=== PATIENT | female | born 1950 | race Caucasian/White ===

== ENCOUNTER → 2016-12-17 | Outpatient (CLI) | payer OTHER, MEDICAID ==
--- NOTE | 2016-12-20 08:45 | RAD ---
HISTORY: Rotator cuff sprain Study: 3 views of the left shoulder. Comparison: None Findings: No acute fractures or dislocations. The glenohumeral articulation is normal in its appearance. No g ross soft tissue abnormalities. The acromioclavicular joint is normal in appearance. IMPRESSION: 1. No acute abnormality of the left shoulder. Reported By:
== END | disposition home or self-care (01) ==
LOC: RAD 10:40
PROVIDERS: ATTEND Obstetrics & Gynecology Obstetrics
DX: S43.422A Sprain of left rotator cuff capsule, initial encounter (principal); X58.XXXA Exposure to other specified factors, initial encounter
CPT/HCPCS: 73030

== ENCOUNTER 2023-07-02 10:56 | Inpatient (IN) ==
--- NOTE | 2023-07-02 11:12 | DR.GENAD ---
HPI Time Seen Time Seen by Provider: 07/02/23 11:11 PMH PMH Past Medical History: Coronary Artery Disease and Hypertension Past Surgical History: Yes Surgical History: Hysterectomy Social History Do you use any recreational Drugs:: No PE Vital Signs Vitals: Vital Signs Temperature 99.4 F Temperature 102.1 F Pulse Rate 106 Pulse Rate 111 Pulse Rate 117 Pulse Rate 115 Pulse Rate 124 Pulse Rate 109 Pulse Rate 109 Pulse Rate 114 Pulse Rate 109 Pulse Rate 98 Respiratory Rate 29 Respiratory Rate 28 Respiratory Rate 30 Respiratory Rate 20 Respiratory Rate 26 Respiratory Rate 30 Respiratory Rate 30 Respiratory Rate 32 Respiratory Rate 21 Respiratory Rate 35 Respiratory Rate 37 Respiratory Rate 21 Blood Pressure 125/60 Blood Pressure 136/62 Blood Pressure 137/84 Blood Pressure 138/68 Blood Pressure 151/70 Blood Pressure 141/72 O2 Sat by Pulse Oximetry 93 O2 Sat by Pulse Oximetry 93 O2 Sat by Pulse Oximetry 93 O2 Sat by Pulse Oximetry 93 O2 Sat by Pulse Oximetry 94 O2 Sat by Pulse Oximetry 92 O2 Sat by Pulse Oximetry 94 O2 Sat by Pulse Oximetry 94 O2 Sat by Pulse Oximetry 96 O2 Sat by Pulse Oximetry 100 ROR Labs Reviewed 07/02/23 11:49 07/02/23 11:49 Laboratory: WBC 22.9 X10^3/uL (3.6-10.0) H 07/02/23 11:49 RBC 3.81 X10^6/uL (3.5-5.4) 07/02/23 11:49 Hgb 11.6 g/dL (12.0-16.0) L 07/02/23 11:49 Hct 35.4 % (36.0-47.0) L 07/02/23 11:49 MCV 92.9 fL (80.0-100.0) 07/02/23 11:49 MCH 30.4 pg (27.0-34.0) 07/02/23 11:49 MCHC 32.7 g/dL (33.0-35.0) L 07/02/23 11:49 RDW 13.3 % (11.6-16.5) 07/02/23 11:49 Plt Count 312 X10^3/uL (150.0-450.0) 07/02/23 11:49 Plt Count Comment Adequate (ADEQUATE) 07/02/23 11:49 MPV 7.2 fL (7.4-11.0) L 07/02/23 11:49 Neut % (Auto) 82.6 % (42.0-75.0) H 07/02/23 11:49 Lymph % (Auto) 9.3 % (21.0-51.0) L 07/02/23 11:49 [place] % (Auto) 7.4 % (0.0-13.0) 07/02/23 11:49 Eos % (Auto) 0.1 % (0.9-2.9) L 07/02/23 11:49 Baso % (Auto) 0.6 % (0.2-1.0) 07/02/23 11:49 Neut # (Auto) 18.9 x10^3/uL (2.2-4.8) H 07/02/23 11:49 Lymph # (Auto) 2.1 X10^3/uL (1.3-2.9) 07/02/23 11:49 [place] # (Auto) 1.7 x10^3/uL (0.3-0.8) H 07/02/23 11:49 Eos # (Auto) 0.0 x10^3/uL (0.0-0.2) 07/02/23 11:49 Baso # (Auto) 0.1 X10^3/uL (0.0-0.1) 07/02/23 11:49 Absolute Nucleated RBC 0.0 /100WBC 07/02/23 11:49 Total Counted 100 07/02/23 11:49 Neutrophils % (Manual) 82 % (39-76) H 07/02/23 11:49 Band Neutrophils % 7 % (0-10) 07/02/23 11:49 Lymphocytes % (Manual) 7 % (13-43) L 07/02/23 11:49 Monocytes % (Manual) 4 % (4-9) 07/02/23 11:49 Eosinophils % (Manual) 0 % (0-6) 07/02/23 11:49 Basophils % (Manual) 0 % (0-1) 07/02/23 11:49 Toxic Granulation Slight A 07/02/23 11:49 Plt Morphology Comment Normal (NORMAL) 07/02/23 11:49 RBC Morphology Normal (NORMAL) 07/02/23 11:49 Sodium 135 mmol/L (136-145) L 07/02/23 11:49 Corrected Sodium 136 mmol/L (136-145) 07/02/23 11:49 Potassium 3.5 mmol/L (3.5-5.1) 07/02/23 11:49 Chloride 101 mmol/L (98-107) 07/02/23 11:49 Carbon Dioxide 27.2 mmol/L (21-32) 07/02/23 11:49 BUN 9 mg/dL (7-18) 07/02/23 11:49 Creatinine 1.04 mg/dL (0.55-1.02) H 07/02/23 11:49 Est GFR (MDRD) Af Amer > 60 (>60) 07/02/23 11:49 Est GFR (MDRD) Non-Af 56 (>60) L 07/02/23 11:49 Glucose 133 mg/dL (65-99) H 07/02/23 11:49 Lactic Acid 2.4 mmol/L (0.4-2.0) H 07/02/23 11:49 Calcium 8.0 mg/dL (8.5-10.1) L 07/02/23 11:49 Corrected Calcium 8.7 mg/dL (8.5-10.1) 07/02/23 11:49 Total Bilirubin 1.20 mg/dL (0.2-1.0) H 07/02/23 11:49 AST 19 Units/L (15-37) 07/02/23 11:49 ALT 15 Units/L (12-78) 07/02/23 11:49 Alkaline Phosphatase 55 Units/L (46-116) 07/02/23 11:49 Creatine Kinase 46 Units/L (26-192) 07/02/23 11:49 Troponin I High Sens 5.2 ng/L (4.0-60.0) 07/02/23 11:49 Total Protein 7.0 g/dL (6.4-8.2) 07/02/23 11:49 Albumin 3.1 g/dL (3.4-5.0) L 07/02/23 11:49 Globulin 3.9 g/dL (2.5-4.5) 07/02/23 11:49 Albumin/Globulin Ratio 0.8 Ratio (1.1-2.1) L 07/02/23 11:49 Specimen Type Clean catch urine 07/02/23 12:44 Urine Color Yellow (YELLOW) 07/02/23 12:44 Urine Appearance Clear (CLEAR) 07/02/23 12:44 Urine pH 7.0 (5.0 - 8.0) 07/02/23 12:44 Ur Specific [place] 1.015 (1.000-1.030) 07/02/23 12:44 Urine Protein 2+ (NEGATIVE) 07/02/23 12:44 Urine Glucose (UA) Negative (NEGATIVE) 07/02/23 12:44 Urine Ketones Negative (NEGATIVE) 07/02/23 12:44 Urine Blood 3+ (NEGATIVE) 07/02/23 12:44 Urine Nitrite Negative (NEGATIVE) 07/02/23 12:44 Urine Bilirubin Negative (NEGATIVE) 07/02/23 12:44 Urine Urobilinogen 2+ (NORMAL) 07/02/23 12:44 Ur Leukocyte Esterase Negative (NEGATIVE) 07/02/23 12:44 Urine RBC 3-5 /HPF (0-3) A 07/02/23 12:44 Urine WBC 0-2 /HPF (0-5) 07/02/23 12:44 Ur Squamous Epith Cells Moderate /HPF (NEGATIVE) 07/02/23 12:44 Urine Bacteria 2+ /HPF (NEGATIVE) 07/02/23 12:44 Urine Mucus Rare /HPF (NEGATIVE) 07/02/23 12:44 Ur Culture Indicated? Yes/culture set up 07/02/23 12:44 Opioid Opioid Risk Tool Age (Darrian box if 16-45): No History of Preadolescent Sexual Abuse: No Total: 0 Total Score Risk Category: Low Risk Copyright: Larry ALVAREZ predicting aberrant behaviors Discharge Plan Discharge Plan Patient Disposition: 01 HOME, SELF-CARE Condition: Stable Prescriptions: No Action citalopram 10 mg tablet 1 tab PO QDAY lisinopril 20 mg tablet 1 tab PO QDAY digoxin 125 mcg (0.125 mg) tablet 1 tab PO QDAY estradiol 0.5 mg tablet 1 tab PO QDAY Eliquis 2.5 mg tablet 1 tab PO BID hydrocodone-acetaminophen 5-325 mg tablet 1 tab PO Q8H MDD 3 TAB PRN (Reason: pain) Qty: 15 0RF tizanidine [Zanaflex] 4 mg tablet 4 mg PO Q8H PRN (Reason: muscle spasticity) Qty: 12 0RF Health Concerns: Post Hospitalization: new medications and changes needed to prevent readmission or further decline. Pt educated and given instructions on all concerns. Plan of Treatment: Continue with present treatment and follow up plan. Pt is to keep follow up appointment as instructed and take medications as ordered. Orders to Discharge Patient Discharge Orders: Transfer (Routine); Ordered 07/02/23 Ordered By: NEVIN GIRARD Follow ups/Referrals Follow ups/Referrals: KVNG LANIER [Primary Care Provider] - 3 days Instructions Stand Alone Forms: Post Hospital Follow Up Care
[2023-07-02 11:26] VITALS: BMI 32.3
[2023-07-02] MEDS ORDERED: TYLENOL 325 MG TAB PO ONE ×2 (11:28→11:30)
[2023-07-02] MEDS ORDERED: NS 1,000 ML IV 1,000 ML ONE (11:35)
[2023-07-02] MEDS: NS 1,000 ML IV 1,000 ML IV SCH (11:41)
--- NOTE | 2023-07-02 12:02 | RAD ---
EXAM:CHEST, 1 VIEWHISTORY:COUGH AND LETHARGY; PT IS HAVING GENERALIZED WEAKNESS AND A PRODUCTIVE COUGH PRODUCING GREEN SPUTUM, FEVER X 1 WEEKCOMPARISON:NoneFINDINGS:The cardiomediastinal silhouette is normal in size.Bibasilar airspace opacities. No pneumothorax or effusion.No acute osseous abnormality.IMPRESSION:Bibasilar opacities concerning for atelectasis or pneumonia. Continued follow-up recommended.THIS IS AN ELECTRONICALLY VERIFIED FINAL [id number]/02/2023 11:54 AM - Electronically signed by Villa White MD
[2023-07-02 12:13] LABS: BASOPHILS # (AUTO) 0.1 X10^3/uL (0.0-0.1); BASOPHILS % (AUTO) 0.6 % (0.2-1.0); EOSINOPHILS % (AUTO) 0.1 % (0.9-2.9); HEMATOCRIT 35.4 % (36.0-47.0); HEMOGLOBIN 11.6 g/dL (12.0-16.0); LYMPHOCYTES # (AUTO) 2.1 X10^3/uL (1.3-2.9); LYMPHOCYTES % (AUTO) 9.3 % (21.0-51.0); MEAN CORPUSCULAR HEMOGLOBIN 30.4 pg (27.0-34.0); MEAN CORPUSCULAR HGB CONC 32.7 g/dL (33.0-35.0); MEAN CORPUSCULAR VOLUME 92.9 fL (80.0-100.0); MEAN PLATELET VOLUME 7.2 fL (7.4-11.0); MONOCYTES # (AUTO) 1.7 x10^3/uL (0.3-0.8); MONOCYTES % (AUTO) 7.4 % (0.0-13.0); NEUTROPHILS # (AUTO) 18.9 x10^3/uL (2.2-4.8); NEUTROPHILS % (AUTO) 82.6 % (42.0-75.0); PLATELET COUNT 312 X10^3/uL (150.0-450.0); RED BLOOD COUNT 3.81 X10^6/uL (3.5-5.4); RED CELL DISTRIBUTION WIDTH 13.3 % (11.6-16.5); WHITE BLOOD COUNT 22.9 X10^3/uL (3.6-10.0)
--- NOTE | 2023-07-02 12:13 | EKG ---
Test Reason : LETHARGY Blood Pressure : */* mmHG Vent. Rate : 115 BPM Atrial Rate : 115 BPM P-R Int : 170 ms QRS Dur : 88 ms QT Int : 326 ms P-R-T Axes : 51 -54 61 degrees QTc Int : 450 ms Sinus tachycardia Left anterior fascicular block Minimal voltage criteria for LVH, may be normal variant ( [place] product ) Cannot rule out Anterior infarct , age undetermined Abnormal ECG No previous ECGs available Confirmed by Rajesh Ceo ([id number]) on 07/04/2023 10:02:05 AM Referred By: Confirmed By: Rajesh Coe
[2023-07-02 12:25] LABS: ALANINE AMINOTRANSFERASE 15 Units/L (12-78); ALBUMIN 3.1 g/dL (3.4-5.0); ALKALINE PHOSPHATASE 55 Units/L (46-116); ASPARTATE AMINO TRANSFERASE 19 Units/L (15-37); BLOOD UREA NITROGEN 9 mg/dL (7-18); CARBON DIOXIDE 27.2 mmol/L (21-32); CHLORIDE 101 mmol/L (98-107); COR CA(FOR HYPOALB) 8.7 mg/dL (8.5-10.1); COR NA(FOR HYPERGLY) 136 mmol/L (136-145); CREATINE KINASE 46 Units/L (26-192); CREATININE 1.04 mg/dL (0.55-1.02); GLUCOSE 133 mg/dL (65-99); POTASSIUM 3.5 mmol/L (3.5-5.1); SODIUM 135 mmol/L (136-145); eGFR NON BLACK RACES 56 (>60)
[2023-07-02 13:00] LABS: BAND NEUTROPHILS % 7 % (0-10); BASOPHILS % (MANUAL) 0 % (0-1); PLATELET MORPHOLOGY COMMENT NORMAL (NORMAL); TOXIC GRANULATION SLIGHT
[2023-07-02 13:15] LABS: BILIRUBIN,URINE NEGATIVE (NEGATIVE); BLOOD/HEMOGLOBIN,URINE 3+ (NEGATIVE); GLUCOSE, URINE NEGATIVE (NEGATIVE); KETONES,URINE NEGATIVE (NEGATIVE); LEUKOCYTE ESTERASE ,URINE NEGATIVE (NEGATIVE); NITRITES,URINE NEGATIVE (NEGATIVE); PROTEIN,URINE 2+ (NEGATIVE); UROBILINOGEN,URINE 2+ (NORMAL)
[2023-07-02 13:26] LABS: APPEARANCE,URINE CLEAR (CLEAR); BACTERIA,URINE 2+ /HPF (NEGATIVE); COLOR,URINE YELLOW (YELLOW); SQUAMOUS EPITHELIAL CELL,UR MODERATE /HPF (NEGATIVE)
[2023-07-02] MEDS: ROCEPHIN VIAL 1 GRAM IV SCH (14:54)
[2023-07-02] MEDS ORDERED: ROCEPHIN VIAL 1 GRAM ONE (14:55)
[2023-07-02] MEDS ORDERED: DUONEB 0.5 MG/3 MG (3 mL) NEB ONE (17:02)
[2023-07-02] MEDS: DUONEB 0.5 MG/3 MG (3 mL) NEB SCH ×2 (17:05→21:07)
[2023-07-02] MEDS: ZITHROMAX INJ 500 MG VIAL 500 MG in NS 250 ML IV 250 ML IV SCH (17:12)
[2023-07-02] MEDS ORDERED: CONSULT PHARMACY - POTASSIUM & MAGNESIUM XX SCH (20:00)
[2023-07-02] MEDS ORDERED: K-DUR TAB 20 MEQ PO ONE (21:00)
[2023-07-02] MEDS: PULMICORT NEB TX 0.5 MG NEB SCH (21:07)
[2023-07-02] MEDS: TYLENOL 325 MG TAB PO PRN (21:15)
--- NOTE | 2023-07-02 21:29 | EKG ---
Test Reason : irregular heart rate rhythm Blood Pressure : */* mmHG Vent. Rate : 151 BPM Atrial Rate : * BPM P-R Int : * ms QRS Dur : 84 ms QT Int : 298 ms P-R-T Axes : * -53 109 degrees QTc Int : 472 ms Atrial fibrillation with rapid ventricular response Left anterior fascicular block Anterior infarct (cited on or before 02-JUL-2023) Marked ST abnormality, possible inferior subendocardial injury Abnormal ECG When compared with ECG of 02-JUL-2023 12:08, (Unconfirmed) Atrial fibrillation has replaced Sinus rhythm Serial changes of evolving Anterior infarct present Confirmed by Rajesh Coe ([id number]) on 07/04/2023 10:01:29 AM Referred By: Confirmed By: Rajesh Coe
[2023-07-02] MEDS: MAG-OX TAB PO SCH ×2 (21:34→23:02)
[2023-07-02] MEDS: ELIQUIS PO SCH (21:34)
[2023-07-02] MEDS ORDERED: LANOXIN INJ IVP ONE (21:55)
[2023-07-02] MEDS: LOPRESSOR INJ 5 MG AMP IVP ONE ×2 (22:47→23:02)
[2023-07-02] MEDS ORDERED: LOPRESSOR INJ 5 MG AMP IVP ONE (22:55)
[2023-07-03] MEDS: DUONEB 0.5 MG/3 MG (3 mL) NEB SCH ×2 (00:30→05:34)
[2023-07-03 05:21] LABS: BASOPHILS % (AUTO) 0.2 % (0.2-1.0); HEMATOCRIT 33.1 % (36.0-47.0); HEMOGLOBIN 10.9 g/dL (12.0-16.0); LYMPHOCYTES # (AUTO) 1.7 X10^3/uL (1.3-2.9); LYMPHOCYTES % (AUTO) 8.6 % (21.0-51.0); MEAN CORPUSCULAR HEMOGLOBIN 30.7 pg (27.0-34.0); MEAN PLATELET VOLUME 7.5 fL (7.4-11.0); MONOCYTES # (AUTO) 1.4 x10^3/uL (0.3-0.8); MONOCYTES % (AUTO) 7.2 % (0.0-13.0); NEUTROPHILS # (AUTO) 16.4 x10^3/uL (2.2-4.8); PLATELET COUNT 276 X10^3/uL (150.0-450.0); RED BLOOD COUNT 3.55 X10^6/uL (3.5-5.4); RED CELL DISTRIBUTION WIDTH 13.3 % (11.6-16.5); WHITE BLOOD COUNT 19.6 X10^3/uL (3.6-10.0)
[2023-07-03 05:38] LABS: ALANINE AMINOTRANSFERASE 13 Units/L (12-78); ALBUMIN 2.5 g/dL (3.4-5.0); ALKALINE PHOSPHATASE 50 Units/L (46-116); ASPARTATE AMINO TRANSFERASE 13 Units/L (15-37); BLOOD UREA NITROGEN 13 mg/dL (7-18); CALCIUM 7.7 mg/dL (8.5-10.1); CARBON DIOXIDE 29.5 mmol/L (21-32); CHLORIDE 104 mmol/L (98-107); COR CA(FOR HYPOALB) 8.9 mg/dL (8.5-10.1); CREATININE 0.93 mg/dL (0.55-1.02); GLUCOSE 104 mg/dL (65-99); POTASSIUM 4.1 mmol/L (3.5-5.1); SODIUM 138 mmol/L (136-145); TOTAL PROTEIN 6.1 g/dL (6.4-8.2); eGFR NON BLACK RACES > 60 (>60)
[2023-07-03] MEDS: XOPENEX 1.25 MG/3 ML NEBULE NEB SCH ×4 (05:45→20:40)
[2023-07-03] MEDS: LANOXIN or DIGITEK PO SCH (08:15)
[2023-07-03] MEDS: PULMICORT NEB TX 0.5 MG NEB SCH ×2 (08:42→20:40)
[2023-07-03] MEDS: ZESTRIL TAB 10 MG PO SCH (08:55)
[2023-07-03] MEDS: ELIQUIS PO SCH ×2 (08:55→21:08)
[2023-07-03] MEDS: TYLENOL 325 MG TAB PO PRN ×2 (08:57→21:07)
[2023-07-03] MEDS: ROCEPHIN VIAL 1 GRAM IV SCH (08:58)
[2023-07-03] MEDS: ZITHROMAX INJ 500 MG VIAL 500 MG in NS 250 ML IV 250 ML IV SCH (08:59)
[2023-07-03] MEDS ORDERED: TOPROL XL PO SCH (09:00)
[2023-07-03] MEDS: NS 1,000 ML IV 1,000 ML IV SCH (11:00)
[2023-07-03] MEDS ORDERED: TUSSIONEX PENNKINETIC SUSP PO PRN (18:35)
[2023-07-03] MEDS ORDERED: CONSULT PHARMACY - POTASSIUM & MAGNESIUM XX SCH (20:00)
[2023-07-03] MEDS: MAG-OX TAB PO SCH ×2 (21:08→22:03)
[2023-07-04] MEDS: XOPENEX 1.25 MG/3 ML NEBULE NEB SCH (05:23)
[2023-07-04 05:40] LABS: ALANINE AMINOTRANSFERASE 14 Units/L (12-78); ALBUMIN 2.3 g/dL (3.4-5.0); ALKALINE PHOSPHATASE 46 Units/L (46-116); ASPARTATE AMINO TRANSFERASE 17 Units/L (15-37); BLOOD UREA NITROGEN 11 mg/dL (7-18); CALCIUM 7.7 mg/dL (8.5-10.1); CARBON DIOXIDE 27.4 mmol/L (21-32); CHLORIDE 106 mmol/L (98-107); COR CA(FOR HYPOALB) 9.1 mg/dL (8.5-10.1); CREATININE 0.84 mg/dL (0.55-1.02); GLUCOSE 86 mg/dL (65-99); MAGNESIUM 2.1 mg/dL (2.0-2.9); POTASSIUM 4.2 mmol/L (3.5-5.1); SODIUM 138 mmol/L (136-145); TOTAL PROTEIN 5.9 g/dL (6.4-8.2); eGFR NON BLACK RACES > 60 (>60)
[2023-07-04 05:58] LABS: BASOPHILS # (AUTO) 0.1 X10^3/uL (0.0-0.1); BASOPHILS % (AUTO) 0.6 % (0.2-1.0); EOSINOPHILS # (AUTO) 0.2 x10^3/uL (0.0-0.2); EOSINOPHILS % (AUTO) 1.7 % (0.9-2.9); HEMATOCRIT 32.6 % (36.0-47.0); HEMOGLOBIN 10.6 g/dL (12.0-16.0); LYMPHOCYTES # (AUTO) 2.4 X10^3/uL (1.3-2.9); LYMPHOCYTES % (AUTO) 20.1 % (21.0-51.0); MEAN CORPUSCULAR HEMOGLOBIN 30.4 pg (27.0-34.0); MEAN CORPUSCULAR HGB CONC 32.5 g/dL (33.0-35.0); MEAN CORPUSCULAR VOLUME 93.6 fL (80.0-100.0); MEAN PLATELET VOLUME 8.3 fL (7.4-11.0); MONOCYTES # (AUTO) 1.3 x10^3/uL (0.3-0.8); MONOCYTES % (AUTO) 10.9 % (0.0-13.0); NEUTROPHILS # (AUTO) 7.8 x10^3/uL (2.2-4.8); NEUTROPHILS % (AUTO) 66.7 % (42.0-75.0); PLATELET COUNT 250 X10^3/uL (150.0-450.0); RED BLOOD COUNT 3.49 X10^6/uL (3.5-5.4); RED CELL DISTRIBUTION WIDTH 14.1 % (11.6-16.5); WHITE BLOOD COUNT 11.7 X10^3/uL (3.6-10.0)
[2023-07-04] MEDS: PULMICORT NEB TX 0.5 MG NEB SCH (08:42)
[2023-07-04] MEDS ORDERED: ROCEPHIN VIAL 1 GRAM 1 G in NS 100 ML IV 100 ML IV SCH (09:45)
[2023-07-04] MEDS: ROCEPHIN VIAL 1 GRAM IV SCH (10:00)
[2023-07-04] MEDS ORDERED: ZITHROMAX INJ 500 MG VIAL 500 MG in NS 250 ML IV 250 ML IV SCH (10:00)
[2023-07-04] MEDS: ZESTRIL TAB 10 MG PO SCH (10:00)
[2023-07-04] MEDS: LANOXIN or DIGITEK PO SCH (10:04)
[2023-07-04] MEDS: ELIQUIS PO SCH (10:04)
[2023-07-04] MEDS: TYLENOL 325 MG TAB PO PRN (10:20)
[2023-07-04 10:33] VITALS: O2SAT 96
[2023-07-04] MEDS: NS 1,000 ML IV 1,000 ML IV SCH (12:35)
[2023-07-04 13:38] VITALS: BP 106/57; PULSE 62; RESP 21; TEMP 98.3
== END 2023-07-04 12:35 | disposition home or self-care (01) | DRG 194 ==
LOC: ER 10:56 → ICU 15:13
PROVIDERS: ADMIT Obstetrics & Gynecology Obstetrics; ATTEND Obstetrics & Gynecology Obstetrics
DX: B95.3 Streptococcus pneumoniae as the cause of diseases classified elsewhere; N39.0 Urinary tract infection, site not specified; R53.1 Weakness; I10 Essential (primary) hypertension; R07.89 Other chest pain; I25.10 Atherosclerotic heart disease of native coronary artery without angina pectoris; J18.8 Other pneumonia, unspecified organism; I48.91 Unspecified atrial fibrillation